=== PATIENT | female | born 1990 | race Caucasian/White ===

== ENCOUNTER 2018-07-27 12:22 | Inpatient (IN) | payer BC, MEDICAID, OTHER ==
[2018-07-27] MEDS ORDERED: OXYTOCIN/DEXTROSE 5%-WATER 30 UNITS/500 ML BAG IV ONE ×2 (12:32→19:21)
[2018-07-27] MEDS ORDERED: ONDANSETRON HCL/PF 2 MG/ML VIAL IV PRN ×2 (12:32→13:36)
[2018-07-27] MEDS ORDERED: DEXTROSE 5%-LACTATED RINGERS 1,000 ML IV PRN (12:32)
[2018-07-27] MEDS ORDERED: RINGER'S SOLUTION,LACTATED 1,000 ML IV ONE (12:32)
[2018-07-27] MEDS ORDERED: OXYTOCIN 30 UNITS in NORMAL SALINE 500 ML IV ONE (13:15)
[2018-07-27] MEDS ORDERED: NALOXONE HCL 1 MG/1 ML SYRG IV PRN (13:36)
[2018-07-27] MEDS ORDERED: BUPIVACAINE HCL/0.9 % NACL/PF 250 ML EP PRN (13:36)
[2018-07-27] MEDS ORDERED: fentaNYL CITRATE/PF 50 MCG/ML AMPUL IT SCH (13:45)
--- NOTE | 2018-07-27 13:53 | ANES ---
Anesthesia Pre Procedure Eval Vitals/Labs: Last Vital Signs Temp 36.7 C 07/27/18 13:24 Pulse 114 H 07/27/18 13:24 Resp 20 07/27/18 13:24 BP 116/85 07/27/18 13:24 Pulse Ox 98 07/27/18 13:24 HOME MEDICATIONS omeprazole 20 mg capsule,delayed release 20 mg PO DAILY 05/11/18 [Last Taken Unknown] vitamin,calcium,psczsshs-fwrw-ixhtd acid tablet 1 tab PO DAILY [Last Taken Unknown] breast pump See Dose Instructions .ROUTE .MEDSUPPLY #1 ea 06/01/18 [Last Taken Unknown] ferrous sulfate 325 mg (65 mg iron) tablet 325 mg PO DAILY tab 06/01/18 [Last Taken Unknown] ascorbic acid (vitamin C) 500 mg capsule 500 mg PO DAILY 07/13/18 [Last Taken Unknown] Allergies/Adverse Reactions: Allergies Allergy/AdvReac Type Severity Reaction Status Date / Time mold Allergy Severe Swelling Verified 07/27/18 09:58 of Throat - Planned Procedure Planned Procedure: ACTIVE LABOR Medication List Reviewed:: Yes Allergies Verified: Yes Medical History (Last Reviewed 07/27/18 @ 13:52 by Jacobo Mcmullen CRNA) Acne Onset Date: Unknown Anemia affecting Onset Date: 04/26/15 Gastroesophageal reflux Onset Date: 11/15/13 Irregular menses Onset Date: 05/02/11 Kidney infection Onset Date: Unknown Migraines Onset Date: Unknown Ovarian cyst Onset Date: 05/02/11 induced hypertension Onset Date: 2011 Urinary tract infection Onset Date: Unknown Surgical History (Last Reviewed 07/27/18 @ 13:52 by Jacobo Mcmullen CRNA) History of myringotomy Onset Date: Unknown Family History (Last Reviewed 07/27/18 @ 13:52 by Jacobo Mcmullen CRNA) Mother Alive and well Father Hypertension Daughter Cerebral palsy Grandfather Prostate cancer Grandmother Myocardial infarction - Family Anesthesia History Family History:: no untoward family reactions to anesthesia, no familial bleeding tendencies, no family history of clotting disorders, no family history of premature - Airway/Neck/Teeth Within Normal Limits:: Yes Teeth Condition: Intact Neck Exam: non-tender, full range of motion Mallampatti Score: 2 Thyromental (T-M) distance: > 6 cm Mandibulo Hyoid distance: > 3 cm - Respiratory Respiratory: chest non-tender, lungs clear Smoking Status: Never smoker Sleep Apnea currently treated: No Sleep Apnea by current assessment: No - Cardiovascular Patient History - Cardiac/Respiratory: No pertinent hx Tolerates Activity: Good Heart Sounds: S1 & S2, Regular - Anesthesia Assessment and Plan ASA Class: PS, II, E Anesthesia Type Plan: Epidural - combination spinal epidural for labor analgesia
--- NOTE | 2018-07-27 14:15 | ANES ---
Post Anesthesia Discharge - Transfer of Care Transfer of Care handoff given to nurse: Yes - Discharge from PACU Discharge from PACU when meets criteria: Yes - Comfortable in ASU.
--- NOTE | 2018-07-27 14:17 | ANES ---
Anesthesia Procedure Note Procedure Note: ANESTHESIA PROCEDURE NOTE Date of Procedure: 07/27/2018 Time of procedure: 1345. Performed by: TRINIDAD Ashford CRNA, MSN Plastic Finisher: Elza Scott RN. Preprocedure diagnosis: Active labor labor pain. Post procedure diagnosis: Same. Procedure:Epidural for labor analgesia L3 4. Indications: Labor pain. Findings: See below. Details of the procedure: The patient was placed on the side of the bed in sitting positionand prepped with DuraPrep then draped in a sterile fashion. Lidocaine 1% was infiltrated to the skin and subcutaneous tissues at the level of the L3 4 interspace. An 18-gauge Touhy needle was used to approach the epidural space with loss of resistance technique. Once loss of resistance was achieved a 27-gauge spinal needle was passed through the epidural needle and CSF was contacted. After CSF returned, 20 mcg of fentanyl was injected in the spinal needle was removed the epidural catheter was then threaded approximately 4 cm in the epidural needle was removed. The catheter was taped in place and after careful aspiration 3 mL of 1.5% lidocaine with 1-200,000 epinephrine was injected without change in maternal heart rate or sensorium. . EBL: Minimal. Fluids: N/A. Specimen: N/A. Post procedure condition: The patient tolerated the procedure well with. Good Relief. No complications were noted. Thank you for this consultation. Jacobo Mcmullen CRNA, ARNP, MSN
--- NOTE | 2018-07-27 14:22 | ANES ---
Post Anesthesia Assessment - Vital Signs Vitals: Last Vital Signs Temp 36.7 C 07/27/18 13:24 Pulse 100 07/27/18 14:21 Resp 20 07/27/18 14:21 BP 109/72 07/27/18 14:21 Pulse Ox 96 07/27/18 14:21 Airway Patency: Normal - Mental Status Level Of Consciousness: Awake, Alert - Pain Level Pain Score: 0 - N/V Assessment Nausea/Vomiting Presence: None Dehydration:: No
--- NOTE | 2018-07-27 16:44 | HP ---
Chief Complaint - Chief Complaint Date of Service: 07/27/18 Time of Service: 16:43 Chief Complaint: contractions History of Present Illness: 28 yo at 37 wks presents to L&D complaining of contractions and vaginal pressure of increasing intensity. This complicated by anemia, history of GHTN, migraines. Rh positive Rubella immune GBS negative Medical History (Last Reviewed 07/27/18 @ 16:47 by Maciel Hartley DO) Acne Onset Date: Unknown Anemia affecting Onset Date: 04/26/15 Gastroesophageal reflux Onset Date: 11/15/13 Irregular menses Onset Date: 05/02/11 Kidney infection Onset Date: Unknown Migraines Onset Date: Unknown Ovarian cyst Onset Date: 05/02/11 induced hypertension Onset Date: 2011 Urinary tract infection Onset Date: Unknown Surgical History: Surgical History (Last Reviewed 07/27/18 @ 16:47 by Maciel Hartley DO) History of myringotomy Onset Date: Unknown Family History: Family History (Last Reviewed 07/27/18 @ 16:47 by Maciel Hartley DO) Mother Alive and well Father Hypertension Daughter Cerebral palsy Grandfather Prostate cancer Grandmother Myocardial infarction Social History: Preferred Language Belarusian Smoking Status Never smoker Abuse History No History of abuse Psych History No pertinent hx Review Of Systems (GEN) - Review of Systems Generalized/Overall Review: Present: No Symptoms Reported EENTM: Present: No Symptoms Reported Respiratory: Present: No Symptoms Reported Cardiac: Present: No Symptoms Reported Abdominal: Present: No Symptoms Reported Genitourinary: Present: Other - contractions, vaginal pressure, bloody show Musculoskeletal: Present: No Symptoms Reported Neurological: Present: No Symptoms Reported Skin: Present: No Symptoms Reported Endocrine: Present: No Symptoms Reported Immunizations: IMMUNIZATION HX Immunizations Up to Date Yes History of Influenza Vaccine Yes Allergies/Adverse Reactions: Allergies Allergy/AdvReac Type Severity Reaction Status Date / Time mold Allergy Severe Swelling Verified 07/27/18 09:58 of Throat Home Medications: HOME MEDICATIONS omeprazole 20 mg capsule,delayed release 20 mg PO DAILY 05/11/18 [Last Taken Unknown] vitamin,calcium,hjpoaixc-jblt-crqps acid tablet 1 tab PO DAILY [Last Taken Unknown] breast pump See Dose Instructions .ROUTE .MEDSUPPLY #1 ea 06/01/18 [Last Taken Unknown] ferrous sulfate 325 mg (65 mg iron) tablet 325 mg PO DAILY tab 06/01/18 [Last Taken Unknown] ascorbic acid (vitamin C) 500 mg capsule 500 mg PO DAILY 07/13/18 [Last Taken Unknown] Exam - Exam Vital Signs: Vital Signs - Last Taken Temp 36.7 C 07/27/18 13:24 Pulse 100 07/27/18 14:21 Resp 20 07/27/18 14:21 BP 109/72 07/27/18 14:21 Pulse Ox 96 07/27/18 14:21 Constitutional: Present: Alert, Oriented x3, Cooperative ENT Exam: Present: hearing grossly normal Breasts: Present: Exam deferred Respiratory: Present: lungs clear, no respiratory distress Cardiovascular/Chest: Present: regular rate, rhythm, no edema Abdomen: Present: soft, nontender, other - gravid Extremity: Present: non-tender, no pedal edema, no calf tenderness Skin Exam: Present: normal color, warm/dry, no cyanosis Neurologic: Present: normal mood/affect, oriented x 3 Appearance: Present: appropriate appearance, appropriate insight, no memory impairment Eye contact: Present: cooperative, good eye contact Thoughts: Present: normal thought pattern Assessment/Plan - Assessment/Plan (1) Labor established Assessment: Admit for routine management of labor. Epidural PRN. Problem: Acute
--- NOTE | 2018-07-27 16:45 | PN ---
Progess Note - Interim Date: 07/27/18 Time: 16:44 Narrative: 07/27/18 16:44 Patient comfortable with epidural Vital signs stable. FHT: 140 baseline, reassuring Contractions q 2-3 min Cervix: 5/80/-2, AROM-clear Impression: Intrauterine at 37 weeks in labor Plan: Continue present plan
[2018-07-27] MEDS ORDERED: SENNOSIDES 8.6 MG TABLET PO PRN (19:21)
[2018-07-27] MEDS ORDERED: HYDROCORTISONE 30 APPL TUBE TP PRN (19:21)
[2018-07-27] MEDS ORDERED: BENZOCAINE/MENTHOL 81 SPRAY CAN TP PRN (19:21)
[2018-07-27] MEDS ORDERED: GLYCERIN/WITCH HAZEL LEAF 40 APPL BOX TP PRN (19:21)
[2018-07-27] MEDS ORDERED: BISACODYL 10 MG SUPP.RECT RC PRN (19:21)
[2018-07-27] MEDS ORDERED: oxyCODONE HCL/ACETAMINOPHEN 1 TAB TABLET PO PRN (19:21)
--- NOTE | 2018-07-27 19:25 | OR ---
Operative Report - Dictated Report Narrative: Spontaneous vaginal delivery of viable male at 1859 on 07/27/2018 with Apgars 8 and 9, weighing 3602 g in GAURI position. Cord clamping delayed approximately 1 minute Placenta delivered complete, intact, with three vessel cord Estimated blood loss: less than 50 ml Anesthesia: epidural Lacerations: Small perineal abrasion at the posterior fourchette with no repair needed.
[2018-07-27] MEDS: IBUPROFEN 800 MG TABLET PO PRN (19:48)
[2018-07-27] MEDS: oxyCODONE HCL/ACETAMINOPHEN 1 TAB TABLET PO PRN (21:06)
[2018-07-27] MEDS: DOCUSATE SODIUM 100 MG CAPSULE PO SCH (21:14)
[2018-07-28] MEDS: IBUPROFEN 800 MG TABLET PO PRN ×2 (03:21→10:10)
[2018-07-28] MEDS: oxyCODONE HCL/ACETAMINOPHEN 1 TAB TABLET PO PRN ×4 (03:21→14:30)
--- NOTE | 2018-07-28 09:00 | PN ---
Subjective - Date and Time Seen Date: 07/28/18 Time: 08:58 Objective - Vitals Vitals: Last Vital Signs Temp 36.6 C 07/28/18 08:49 Pulse 80 07/28/18 08:49 Resp 13 07/28/18 08:49 BP 111/74 07/28/18 08:49 Pulse Ox 100 07/28/18 08:49 Patient was feeling fine, ate breakfast, and about 1 hour later vomited. Denies fever, chills, headache, or achiness Lochia wnl Abdomen - soft, nontender Uterus - firm, at umbilicus - 1 No calf tenderness Impression: day #1 - s/p spontaneous vaginal delivery. Emesis 1. Plan: Continue routine care. Zofran when necessary. Cauti Physician Documentation - Urinary Catheter Management Urethral (Mcdermott) Date of Insertion: 07/27/18 Time of Insertion: 14:29 Assessment/Plan - Problems/Diagnosis (1) Labor established Problem: Acute
[2018-07-28] MEDS: PANTOPRAZOLE SODIUM 20 MG TABLET.DR PO SCH (09:28)
[2018-07-28] MEDS: ONDANSETRON HCL/PF 2 MG/ML VIAL IV PRN ×2 (09:31→16:52)
[2018-07-28] MEDS: PRENATAL VITS96/IRON FUM/FOLIC 1 TAB TABLET PO SCH ×2 (09:34→14:32)
[2018-07-28] MEDS: FERROUS SULFATE 325 MG TABLET PO SCH ×2 (09:34→14:33)
[2018-07-28] MEDS: ASCORBIC ACID 500 MG TABLET PO SCH ×2 (09:34→14:33)
[2018-07-28] MEDS: DOCUSATE SODIUM 100 MG CAPSULE PO SCH ×3 (10:12→20:36)
[2018-07-29] MEDS: PANTOPRAZOLE SODIUM 20 MG TABLET.DR PO SCH (06:57)
--- NOTE | 2018-07-29 08:59 | PN ---
Subjective - Date and Time Seen Date: 07/29/18 Time: 08:58 Objective - Vitals Vitals: Last Vital Signs Temp 36.7 C 07/29/18 07:51 Pulse 81 07/29/18 07:51 Resp 12 07/29/18 07:51 BP 106/83 07/29/18 07:51 Pulse Ox 98 07/29/18 07:51 Patient denies complaints. Nausea and vomiting occurred after taking Percocet. Lochia wnl Abdomen - soft, nontender Uterus - firm, at umbilicus - 2 No calf tenderness Impression: day #2 - s/p spontaneous vaginal delivery. Plan: Routine discharge instructions. Avoid Percocet. Cauti Physician Documentation - Urinary Catheter Management Urethral (Mcdermott) Date of Insertion: 07/27/18 Time of Insertion: 14:29 Assessment/Plan - Problems/Diagnosis (1) Labor established Problem: Acute
[2018-07-29] MEDS: FERROUS SULFATE 325 MG TABLET PO SCH (09:29)
[2018-07-29] MEDS: ASCORBIC ACID 500 MG TABLET PO SCH (09:30)
[2018-07-29] MEDS: DOCUSATE SODIUM 100 MG CAPSULE PO SCH (09:30)
[2018-07-29] MEDS: PRENATAL VITS96/IRON FUM/FOLIC 1 TAB TABLET PO SCH (09:30)
--- NOTE | 2018-07-29 18:11 | PN ---
Progess Note - Interim Date: 07/29/18 Time: 18:10 History for MU Definition: * The number of deliveries resulting in a live the patient experienced prior to current hospitalization * The previous delivery of live twins or any live multiple gestation is considered one live event. *If primagravida or nulliparous is documented select zero for the number of previous live births. Live Events: 3
[2018-07-29 19:41] VITALS: BP 118/77
== END 2018-07-29 23:59 | disposition home or self-care (01) | DRG 775 ==
LOC: OB 12:22
PROVIDERS: ADMIT Obstetrics & Gynecology; ATTEND Obstetrics & Gynecology
CPT/HCPCS: 59025; J2405